=== PATIENT | female | born 1945 | race Caucasian/White ===

== ENCOUNTER 2018-07-04 18:12 | Inpatient (IN) | payer MEDICARE, MEDICAID ==
[~2018-07-04] VITALS: Ht 177.8 cm; Wt 48.1 kg
[2018-07-04] MEDS: SODIUM CHLORIDE FLUSH 10ML SYR IVF SCH (22:30)
[2018-07-04] MEDS ORDERED: PLEASE ENTER ALLERGIES MC SCH (22:30)
[2018-07-04] MEDS ORDERED: PLEASE ENTER HEIGHT AND WEIGHT MC SCH (22:30)
[2018-07-04] MEDS ORDERED: ACETAMINOPHEN 325 MG TABLET PO PRN (22:30)
[2018-07-04] MEDS ORDERED: POLYETHYLENE GLYCOL 17 GM PACKET PO PRN (22:30)
[2018-07-04] MEDS ORDERED: BISACODYL 10 MG SUPP PR PRN (22:30)
[2018-07-04 23:00] VITALS: BP 102/67
[2018-07-04 23:14] LABS: BASOPHILS # (AUTO) 0.03 x10^3/uL (0-0.1); BASOPHILS % (AUTO) 0 % (0-1); EOSINOPHILS # (AUTO) 0.32 x10^3/uL (0-0.4); EOSINOPHILS % (AUTO) 4 % (1-7); LYMPHOCYTES # (AUTO) 2.18 x10^3/uL (1-3.4); LYMPHOCYTES % (AUTO) 30 % (22-44); MD NO; MEAN CORPUSCULAR HGB CONC 32.5 g/dL (32.4-35.8); MEAN CORPUSCULAR VOLUME 92.6 fL (80-100); MEAN PLATELET VOLUME 8.2 fL (7.4-10.4); MONOCYTES % (AUTO) 11 % (2-9); NEUTROPHILS # (AUTO) 3.93 x10^3/uL (1.8-6.8); NEUTROPHILS % (AUTO) 54 % (42-75); PLATELET COUNT 332 x10^3/uL (130-400); RED BLOOD COUNT 3.11 x10^6/uL (3.82-5.3); RED CELL DISTRIBUTION WIDTH 16.2 % (9.6-15.2)
[2018-07-04 23:24] LABS: ALANINE AMINOTRANSFERASE 12 U/L (12-78); ALBUMIN 2.8 g/dL (3.4-5.0); ANION GAP 7 mmol/L (5-15); CALCIUM 8.4 mg/dL (8.5-10.1); CHLORIDE 107 mmol/L (98-107); CREATININE 0.64 mg/dL (0.55-1.02)
[2018-07-04 23:27] LABS: ALKALINE PHOSPHATASE 126 U/L (45-117); BILIRUBIN,TOTAL 0.3 mg/dL (0.2-1.0); TOTAL PROTEIN 6.6 g/dL (6.4-8.2)
[2018-07-05] MEDS ORDERED: MAG360OR26 PO (00:25)
[2018-07-05] MEDS ORDERED: GUAI120L37 PO (00:25)
[2018-07-05] MEDS ORDERED: LEVO25TA4 PO (00:25)
[2018-07-05] MEDS ORDERED: GABA-826 PO (00:25)
[2018-07-05] MEDS ORDERED: ACET650S21 PO (00:25)
[2018-07-05] MEDS ORDERED: GABA600T2 PO (00:25)
[2018-07-05] MEDS ORDERED: NAPR-868 PO (00:25)
[2018-07-05] MEDS ORDERED: ALBU5SOL6 NEB (00:25)
[2018-07-05] MEDS ORDERED: DOXY100T PO (00:25)
[2018-07-05] MEDS ORDERED: PANT40TA5 PO (00:25)
[2018-07-05] MEDS ORDERED: LORA0.5T PO (00:25)
[2018-07-05] MEDS ORDERED: MAGNESIUM HYDROXIDE PO (00:25)
[2018-07-05] MEDS ORDERED: METO25TA35 PO (00:25)
[2018-07-05] MEDS ORDERED: RISP0.5T3 PO (00:25)
[2018-07-05] MEDS ORDERED: LIDO700A20 TD (00:25)
[2018-07-05] MEDS ORDERED: OXYC-432 PO (00:25)
[2018-07-05] MEDS ORDERED: ALBUTEROL/IPRATROPIUM 2.5MG/0.5MG, 3 ML NPPB PRN (01:00)
[2018-07-05] MEDS ORDERED: ALUMINUM/MAG/SIMETHICONE 30 ML UDC PO PRN (01:30)
[2018-07-05] MEDS ORDERED: LORazepam 0.5MG TABLET PO PRN (01:30)
[2018-07-05] MEDS ORDERED: ALBUTEROL SULFATE 2.5 MG/3 ML NPPB PRN (01:30)
[2018-07-05 02:51] VITALS: BP 94/62
[2018-07-05] MEDS: HEPARIN 5,000 UNITS/ML, 1ML SQ SCH ×2 (03:19→09:36)
[2018-07-05] MEDS: METOPROLOL TARTRATE 25 MG TABLET PO SCH ×3 (06:00→17:09)
[2018-07-05 06:08] VITALS: BP 97/62
[2018-07-05] MEDS: LEVOTHYROXINE 25 MCG TABLET PO SCH (06:29)
[2018-07-05 06:56] VITALS: BP 104/63
[2018-07-05] MEDS: PANTOPROZOLE 40MG TABLET PO SCH (07:57)
[2018-07-05] MEDS: GABAPENTIN 100 MG CAPSULE PO SCH ×2 (08:00→17:09)
[2018-07-05] MEDS: SENNA/DOCUSATE TABLET PO SCH (09:00)
[2018-07-05] MEDS: SODIUM CHLORIDE FLUSH 10ML SYR IVF SCH ×2 (09:00→19:32)
[2018-07-05] MEDS: DOXYCYCLINE 100MG TABLET PO SCH ×2 (09:00→19:32)
[2018-07-05] MEDS: NAPROXEN 250 MG TABLET PO SCH ×2 (09:00→19:33)
[2018-07-05] MEDS: LIDODERM 5% PATCH TD SCH (09:36)
[2018-07-05] MEDS ORDERED: LIDOCAINE-MPF 1%, 5ML ONE ×2 (11:30)
[2018-07-05] MEDS ORDERED: FENTANYL PF 100 MCG/2ML ONE ×2 (11:39→11:40)
[2018-07-05] MEDS ORDERED: NALOXONE 1 MG/ML, 2ML ONE (11:40)
[2018-07-05] MEDS ORDERED: MIDAZOLAM 1 MG/ML, 5ML ONE (11:40)
[2018-07-05] MEDS ORDERED: FLUMAZENIL 0.1 MG/1 ML, 5ML ONE (11:40)
[2018-07-05 12:36] VITALS: BP 106/62
[2018-07-05] MEDS: OXYcodone/APAP 10/325MG TABLET PO PRN ×2 (14:00→20:22)
[2018-07-05] MEDS ORDERED: GADOBUTROL 7.5 MMOL/7.5 ML PFS ONE (15:55)
[2018-07-05 19:04] VITALS: BP 119/68
[2018-07-05] MEDS: GABAPENTIN 300 MG CAPSULE PO SCH (19:32)
[2018-07-05] MEDS: RISPERIDONE 0.5 MG TABLET PO SCH (19:32)
[2018-07-05] MEDS: GUAIFENESIN/COD200MG-20MG/10ML LIQUID PO PRN (20:19)
[2018-07-06 02:05] VITALS: BP 121/74
[2018-07-06] MEDS: HEPARIN 5,000 UNITS/ML, 1ML SQ SCH ×4 (03:00→22:06)
[2018-07-06 05:16] LABS: BASOPHILS # (AUTO) 0.06 x10^3/uL (0-0.1); BASOPHILS % (AUTO) 1 % (0-1); EOSINOPHILS # (AUTO) 0.33 x10^3/uL (0-0.4); EOSINOPHILS % (AUTO) 5 % (1-7); LYMPHOCYTES # (AUTO) 1.85 x10^3/uL (1-3.4); LYMPHOCYTES % (AUTO) 28 % (22-44); MD NO; MEAN CORPUSCULAR HEMOGLOBIN 30.1 pg (27.0-34.8); MEAN CORPUSCULAR HGB CONC 32.7 g/dL (32.4-35.8); MEAN CORPUSCULAR VOLUME 91.9 fL (80-100); MEAN PLATELET VOLUME 8.6 fL (7.4-10.4); MONOCYTES # (AUTO) 0.65 x10^3/uL (0.2-0.8); MONOCYTES % (AUTO) 10 % (2-9); NEUTROPHILS % (AUTO) 56 % (42-75); PLATELET COUNT 298 x10^3/uL (130-400); RED BLOOD COUNT 2.96 x10^6/uL (3.82-5.3); RED CELL DISTRIBUTION WIDTH 16.2 % (9.6-15.2)
[2018-07-06 05:26] LABS: ANION GAP 8 mmol/L (5-15); CALCIUM 8.4 mg/dL (8.5-10.1); CHLORIDE 110 mmol/L (98-107); CREATININE 0.45 mg/dL (0.55-1.02)
[2018-07-06] MEDS: LEVOTHYROXINE 25 MCG TABLET PO SCH (05:35)
[2018-07-06] MEDS: METOPROLOL TARTRATE 25 MG TABLET PO SCH ×2 (05:36→16:19)
[2018-07-06 07:03] VITALS: BP 108/66
[2018-07-06] MEDS: PANTOPROZOLE 40MG TABLET PO SCH (07:42)
[2018-07-06] MEDS: SENNA/DOCUSATE TABLET PO SCH (08:47)
[2018-07-06] MEDS: GABAPENTIN 100 MG CAPSULE PO SCH ×2 (08:47→16:19)
[2018-07-06] MEDS: OXYcodone/APAP 10/325MG TABLET PO PRN ×3 (08:47→20:55)
[2018-07-06] MEDS: DOXYCYCLINE 100MG TABLET PO SCH ×2 (08:48→20:55)
[2018-07-06] MEDS: NAPROXEN 250 MG TABLET PO SCH ×2 (08:48→20:56)
[2018-07-06] MEDS: LIDODERM 5% PATCH TD SCH (08:49)
[2018-07-06] MEDS: SODIUM CHLORIDE FLUSH 10ML SYR IVF SCH ×2 (08:50→20:56)
[2018-07-06] MEDS: GUAIFENESIN/COD200MG-20MG/10ML LIQUID PO PRN (12:11)
[2018-07-06 14:16] VITALS: BP 123/74
[2018-07-06 20:01] VITALS: BP 112/63
[2018-07-06] MEDS: GABAPENTIN 300 MG CAPSULE PO SCH (20:55)
[2018-07-06] MEDS: RISPERIDONE 0.5 MG TABLET PO SCH (20:55)
[2018-07-07] VITALS (14 sets, daily range): BP systolic 92–126; BP diastolic 57–77
[2018-07-07] MEDS: OXYcodone/APAP 10/325MG TABLET PO PRN ×3 (02:58→18:35)
[2018-07-07] MEDS: LEVOTHYROXINE 25 MCG TABLET PO SCH (05:56)
[2018-07-07] MEDS: HEPARIN 5,000 UNITS/ML, 1ML SQ SCH ×3 (05:56→18:56)
[2018-07-07] MEDS: METOPROLOL TARTRATE 25 MG TABLET PO SCH ×2 (05:59→17:24)
[2018-07-07] MEDS: PANTOPROZOLE 40MG TABLET PO SCH (07:38)
[2018-07-07] MEDS: GABAPENTIN 100 MG CAPSULE PO SCH ×2 (08:55→17:24)
[2018-07-07] MEDS: DOXYCYCLINE 100MG TABLET PO SCH ×2 (08:55→21:35)
[2018-07-07] MEDS: LIDODERM 5% PATCH TD SCH (08:55)
[2018-07-07] MEDS: NAPROXEN 250 MG TABLET PO SCH ×2 (08:56→21:00)
[2018-07-07] MEDS: SENNA/DOCUSATE TABLET PO SCH (08:56)
[2018-07-07] MEDS: SODIUM CHLORIDE FLUSH 10ML SYR IVF SCH ×2 (08:56→21:36)
[2018-07-07] MEDS: GUAIFENESIN/COD200MG-20MG/10ML LIQUID PO PRN (15:23)
[2018-07-07] MEDS: MAGNESIUM HYDROXIDE 8%, 30ML UDC PO PRN (17:29)
[2018-07-07] MEDS: ALBUTEROL/IPRATROPIUM 2.5MG/0.5MG, 3 ML NPPB SCH (19:08)
[2018-07-07] MEDS: RISPERIDONE 0.5 MG TABLET PO SCH (21:36)
[2018-07-07] MEDS: GABAPENTIN 300 MG CAPSULE PO SCH (21:36)
[2018-07-07] MEDS: MICONAZOLE 7 VAG. CRM 2%, 45GM VG SCH (22:01)
[2018-07-08 00:18] VITALS: BP 102/63
[2018-07-08] MEDS ORDERED: ALBUTEROL/IPRATROPIUM 2.5MG/0.5MG, 3 ML NPPB SCH (01:00)
[2018-07-08] MEDS: OXYcodone/APAP 10/325MG TABLET PO PRN ×2 (02:06→15:00)
[2018-07-08] MEDS: HEPARIN 5,000 UNITS/ML, 1ML SQ SCH ×3 (03:42→22:26)
[2018-07-08 05:00] LABS: BASOPHILS # (AUTO) 0.04 x10^3/uL (0-0.1); BASOPHILS % (AUTO) 1 % (0-1); EOSINOPHILS # (AUTO) 0.19 x10^3/uL (0-0.4); EOSINOPHILS % (AUTO) 3 % (1-7); LYMPHOCYTES # (AUTO) 1.65 x10^3/uL (1-3.4); LYMPHOCYTES % (AUTO) 26 % (22-44); MD NO; MEAN CORPUSCULAR HEMOGLOBIN 29.5 pg (27.0-34.8); MEAN CORPUSCULAR HGB CONC 32.3 g/dL (32.4-35.8); MEAN CORPUSCULAR VOLUME 91.2 fL (80-100); MEAN PLATELET VOLUME 8.8 fL (7.4-10.4); MONOCYTES # (AUTO) 0.59 x10^3/uL (0.2-0.8); MONOCYTES % (AUTO) 10 % (2-9); NEUTROPHILS # (AUTO) 3.79 x10^3/uL (1.8-6.8); NEUTROPHILS % (AUTO) 61 % (42-75); PLATELET COUNT 238 x10^3/uL (130-400); RED BLOOD COUNT 3.12 x10^6/uL (3.82-5.3); RED CELL DISTRIBUTION WIDTH 16.5 % (9.6-15.2)
[2018-07-08 05:04] LABS: INTERNATIONAL NORMALIZED RATIO 1.09 (0.93-1.1); PROTHROMBIN TIME 11.3 Seconds (9.6-11.5)
[2018-07-08 05:30] VITALS: BP 92/52
[2018-07-08 05:31] VITALS: BP 85/49
[2018-07-08] MEDS: METOPROLOL TARTRATE 25 MG TABLET PO SCH ×2 (05:32→16:58)
[2018-07-08] MEDS: LEVOTHYROXINE 25 MCG TABLET PO SCH (05:38)
[2018-07-08 05:42] LABS: CHLORIDE 106 mmol/L (98-107)
[2018-07-08 05:48] LABS: ANION GAP 11 mmol/L (5-15); CALCIUM 8.6 mg/dL (8.5-10.1); CREATININE 0.46 mg/dL (0.55-1.02)
[2018-07-08] MEDS: ALBUTEROL/IPRATROPIUM 2.5MG/0.5MG, 3 ML NPPB SCH ×4 (07:00→20:40)
[2018-07-08 07:20] VITALS: BP 94/56
[2018-07-08] MEDS: PANTOPROZOLE 40MG TABLET PO SCH (09:00)
[2018-07-08] MEDS: GABAPENTIN 100 MG CAPSULE PO SCH ×2 (09:00→16:58)
[2018-07-08] MEDS: NAPROXEN 250 MG TABLET PO SCH ×2 (09:00→21:22)
[2018-07-08] MEDS: SENNA/DOCUSATE TABLET PO SCH (09:00)
[2018-07-08] MEDS: DOXYCYCLINE 100MG TABLET PO SCH ×2 (09:01→21:22)
[2018-07-08] MEDS: GUAIFENESIN ER 600 MG TABLET PO SCH ×2 (09:01→21:21)
[2018-07-08] MEDS: SODIUM CHLORIDE FLUSH 10ML SYR IVF SCH ×2 (09:02→21:21)
[2018-07-08] MEDS: LIDODERM 5% PATCH TD SCH (09:04)
[2018-07-08 12:44] VITALS: BP 87/46
[2018-07-08 20:27] VITALS: BP 98/60
[2018-07-08] MEDS: GABAPENTIN 300 MG CAPSULE PO SCH (21:22)
[2018-07-08] MEDS: RISPERIDONE 0.5 MG TABLET PO SCH (21:22)
[2018-07-08] MEDS: MICONAZOLE 7 VAG. CRM 2%, 45GM VG SCH (21:23)
[2018-07-09 01:32] VITALS: BP 92/54
[2018-07-09] MEDS: HEPARIN 5,000 UNITS/ML, 1ML SQ SCH ×3 (03:36→22:43)
[2018-07-09] MEDS: METOPROLOL TARTRATE 25 MG TABLET PO SCH ×2 (06:00→17:42)
[2018-07-09] MEDS: LEVOTHYROXINE 25 MCG TABLET PO SCH (06:28)
[2018-07-09 06:55] VITALS: BP 98/59
[2018-07-09] MEDS: LIDODERM 5% PATCH TD SCH (08:26)
[2018-07-09] MEDS: PANTOPROZOLE 40MG TABLET PO SCH (08:27)
[2018-07-09] MEDS: GABAPENTIN 100 MG CAPSULE PO SCH ×2 (08:27→17:42)
[2018-07-09] MEDS: DOXYCYCLINE 100MG TABLET PO SCH ×2 (08:27→19:45)
[2018-07-09] MEDS: NAPROXEN 250 MG TABLET PO SCH ×2 (08:27→19:45)
[2018-07-09] MEDS: SENNA/DOCUSATE TABLET PO SCH (08:27)
[2018-07-09] MEDS: GUAIFENESIN ER 600 MG TABLET PO SCH ×2 (08:27→19:45)
[2018-07-09] MEDS: SODIUM CHLORIDE FLUSH 10ML SYR IVF SCH ×2 (08:28→19:42)
[2018-07-09] MEDS: ALBUTEROL/IPRATROPIUM 2.5MG/0.5MG, 3 ML NPPB SCH ×4 (08:36→20:25)
[2018-07-09 12:40] VITALS: BP 94/60
[2018-07-09] MEDS: OXYcodone/APAP 10/325MG TABLET PO PRN ×2 (15:21→22:42)
[2018-07-09 19:36] VITALS: BP 108/73
[2018-07-09] MEDS: RISPERIDONE 0.5 MG TABLET PO SCH (19:45)
[2018-07-09] MEDS: GABAPENTIN 300 MG CAPSULE PO SCH (22:42)
[2018-07-09] MEDS: MICONAZOLE 7 VAG. CRM 2%, 45GM VG SCH (22:43)
[2018-07-10 01:15] VITALS: BP 101/68
[2018-07-10] MEDS: LEVOTHYROXINE 25 MCG TABLET PO SCH (05:23)
[2018-07-10] MEDS: METOPROLOL TARTRATE 25 MG TABLET PO SCH ×2 (05:23→17:25)
[2018-07-10] MEDS: ALBUTEROL/IPRATROPIUM 2.5MG/0.5MG, 3 ML NPPB SCH ×4 (07:00→20:02)
[2018-07-10 07:19] VITALS: BP 101/66
[2018-07-10] MEDS: ONDANSETRON ODT 4 MG PO PRN ×3 (08:12→23:21)
[2018-07-10] MEDS: OXYcodone/APAP 10/325MG TABLET PO PRN ×3 (08:12→23:18)
[2018-07-10] MEDS: NAPROXEN 250 MG TABLET PO SCH ×2 (08:12→20:58)
[2018-07-10] MEDS: PANTOPROZOLE 40MG TABLET PO SCH (08:13)
[2018-07-10] MEDS: SENNA/DOCUSATE TABLET PO SCH (08:13)
[2018-07-10] MEDS: GABAPENTIN 100 MG CAPSULE PO SCH ×2 (08:13→17:25)
[2018-07-10] MEDS: DOXYCYCLINE 100MG TABLET PO SCH ×2 (08:13→20:59)
[2018-07-10] MEDS: HEPARIN 5,000 UNITS/ML, 1ML SQ SCH ×2 (08:13→13:00)
[2018-07-10] MEDS: SODIUM CHLORIDE FLUSH 10ML SYR IVF SCH ×2 (08:13→20:59)
[2018-07-10] MEDS: GUAIFENESIN ER 600 MG TABLET PO SCH ×2 (08:13→20:58)
[2018-07-10] MEDS: LIDODERM 5% PATCH TD SCH (08:19)
[2018-07-10 14:19] VITALS: BP 94/57
[2018-07-10 19:05] VITALS: BP 92/56
[2018-07-10] MEDS: RISPERIDONE 0.5 MG TABLET PO SCH (20:58)
[2018-07-10] MEDS: GABAPENTIN 300 MG CAPSULE PO SCH (20:58)
[2018-07-10] MEDS: MICONAZOLE 7 VAG. CRM 2%, 45GM VG SCH (20:59)
[2018-07-11 01:18] VITALS: BP 97/56
[2018-07-11] MEDS: LEVOTHYROXINE 25 MCG TABLET PO SCH (05:51)
[2018-07-11] MEDS: METOPROLOL TARTRATE 25 MG TABLET PO SCH ×2 (05:51→18:00)
[2018-07-11] MEDS: ALBUTEROL/IPRATROPIUM 2.5MG/0.5MG, 3 ML NPPB SCH ×2 (06:30→10:08)
[2018-07-11 08:13] VITALS: BP 96/57
[2018-07-11] MEDS: SODIUM CHLORIDE FLUSH 10ML SYR IVF SCH ×2 (09:07→20:20)
[2018-07-11] MEDS: GABAPENTIN 100 MG CAPSULE PO SCH ×2 (09:07→17:00)
[2018-07-11] MEDS: PANTOPROZOLE 40MG TABLET PO SCH (09:07)
[2018-07-11] MEDS: GUAIFENESIN ER 600 MG TABLET PO SCH ×2 (09:07→20:18)
[2018-07-11] MEDS: NAPROXEN 250 MG TABLET PO SCH ×2 (09:07→20:19)
[2018-07-11] MEDS: DOXYCYCLINE 100MG TABLET PO SCH ×2 (09:08→20:19)
[2018-07-11] MEDS: SENNA/DOCUSATE TABLET PO SCH (09:08)
[2018-07-11] MEDS: LIDODERM 5% PATCH TD SCH (09:08)
[2018-07-11] MEDS ORDERED: SUCCINYLCHOLINE 20 MG/ML, 10ML ONE (10:29)
[2018-07-11] MEDS ORDERED: ONDANSETRON 2MG/ML, 2ML ONE (10:29)
[2018-07-11] MEDS ORDERED: DEXAMETHASONE 4 MG/ML, 1ML ONE (10:29)
[2018-07-11] MEDS ORDERED: PHENYLEPHRINE 10 MG/ML ONE (10:29)
[2018-07-11] MEDS ORDERED: CEFAZOLIN 1,000 MG ONE (10:29)
[2018-07-11] MEDS ORDERED: PROPOFOL 10 MG/ML, 20ML ONE (10:29)
[2018-07-11] MEDS ORDERED: METOCLOPRAMIDE 5 MG/ML, 2ML ONE (10:29)
[2018-07-11] MEDS ORDERED: ALBUTEROL/IPRATROPIUM 2.5MG/0.5MG, 3 ML NPPB PRN (10:30)
[2018-07-11 14:12] VITALS: BP 100/56
[2018-07-11] MEDS ORDERED: EPINEPHRINE 1 MG/ML, 1ML ONE (16:13)
[2018-07-11] MEDS ORDERED: BUPIVACAINE/PF 0.5% ONE (16:13)
[2018-07-11] MEDS ORDERED: MIDAZOLAM 1 MG/ML, 2ML ONE (16:16)
[2018-07-11] MEDS ORDERED: FENTANYL PF 100 MCG/2ML ONE ×3 (16:16→18:48)
[2018-07-11] MEDS ORDERED: OMNIPAQUE 180 MG/ML, 20ML VIAL IT ONE (16:45)
[2018-07-11] MEDS ORDERED: FENTANYL PF 100 MCG/2ML IV PRN (18:30)
[2018-07-11] MEDS ORDERED: ONDANSETRON 2MG/ML, 2ML IV PRN (18:30)
[2018-07-11] MEDS ORDERED: HYDROmorphone 1 MG/ML, 1ML IV PRN (18:30)
[2018-07-11] MEDS ORDERED: HALOPERIDOL 5 MG/ML IV PRN (18:30)
[2018-07-11] MEDS ORDERED: LABETALOL 5MG/ML, 20ML IV PRN (18:30)
[2018-07-11] MEDS ORDERED: MEPERIDINE/PF 25MG/0.5ML IVPush PRN (18:30)
[2018-07-11] MEDS ORDERED: OXYcodone 5 MG/5 ML ORAL.SOL UDC PO PRN (18:30)
[2018-07-11] MEDS ORDERED: hydrALAzine 20 MG/ML, 1ML IV PRN (18:30)
[2018-07-11] MEDS ORDERED: OXYcodone 5 MG/5 ML ORAL.SOL UDC ONE ×2 (18:48→18:49)
[2018-07-11] MEDS ORDERED: HYDROmorphone 2 MG/ML, 1ML ONE (18:49)
[2018-07-11] MEDS: OXYcodone/APAP 10/325MG TABLET PO PRN (20:18)
[2018-07-11] MEDS: RISPERIDONE 0.5 MG TABLET PO SCH (20:18)
[2018-07-11] MEDS: GABAPENTIN 300 MG CAPSULE PO SCH (20:19)
[2018-07-11] MEDS: MICONAZOLE 7 VAG. CRM 2%, 45GM VG SCH (20:22)
[2018-07-11 20:28] VITALS: BP 122/73
[2018-07-11] MEDS ORDERED: MORPHINE SULFATE 4 MG/ML, 1ML IVPush PRN (20:30)
[2018-07-12 02:05] VITALS: BP 103/58
[2018-07-12 04:44] LABS: BASOPHILS # (AUTO) 0.03 x10^3/uL (0-0.1); BASOPHILS % (AUTO) 0 % (0-1); EOSINOPHILS # (AUTO) 0.01 x10^3/uL (0-0.4); EOSINOPHILS % (AUTO) 0 % (1-7); LYMPHOCYTES # (AUTO) 1.06 x10^3/uL (1-3.4); LYMPHOCYTES % (AUTO) 10 % (22-44); MD NO; MEAN CORPUSCULAR HEMOGLOBIN 29.5 pg (27.0-34.8); MEAN CORPUSCULAR HGB CONC 32.1 g/dL (32.4-35.8); MONOCYTES # (AUTO) 0.24 x10^3/uL (0.2-0.8); MONOCYTES % (AUTO) 2 % (2-9); NEUTROPHILS # (AUTO) 9.87 x10^3/uL (1.8-6.8); NEUTROPHILS % (AUTO) 88 % (42-75); PLATELET COUNT 244 x10^3/uL (130-400); RED BLOOD COUNT 3.05 x10^6/uL (3.82-5.3); RED CELL DISTRIBUTION WIDTH 16.5 % (9.6-15.2)
[2018-07-12 04:55] LABS: ANION GAP 8 mmol/L (5-15); CALCIUM 8.3 mg/dL (8.5-10.1); CHLORIDE 105 mmol/L (98-107)
[2018-07-12] MEDS: METOPROLOL TARTRATE 25 MG TABLET PO SCH ×2 (04:55→18:25)
[2018-07-12 04:56] LABS: CREATININE 0.57 mg/dL (0.55-1.02)
[2018-07-12] MEDS: LEVOTHYROXINE 25 MCG TABLET PO SCH (05:40)
[2018-07-12] MEDS: OXYcodone/APAP 10/325MG TABLET PO PRN ×2 (05:40→19:58)
[2018-07-12] MEDS: MAGNESIUM HYDROXIDE 8%, 30ML UDC PO PRN (05:40)
[2018-07-12 07:33] VITALS: BP 100/64
[2018-07-12] MEDS: PANTOPROZOLE 40MG TABLET PO SCH (10:24)
[2018-07-12] MEDS: DOXYCYCLINE 100MG TABLET PO SCH ×2 (10:24→19:57)
[2018-07-12] MEDS: SENNA/DOCUSATE TABLET PO SCH (10:24)
[2018-07-12] MEDS: GUAIFENESIN ER 600 MG TABLET PO SCH ×2 (10:24→19:57)
[2018-07-12] MEDS: GABAPENTIN 100 MG CAPSULE PO SCH ×2 (10:25→18:25)
[2018-07-12] MEDS: NAPROXEN 250 MG TABLET PO SCH ×2 (10:25→19:57)
[2018-07-12] MEDS: SODIUM CHLORIDE FLUSH 10ML SYR IVF SCH ×2 (10:27→20:00)
[2018-07-12 14:30] VITALS: BP 103/64
[2018-07-12] MEDS: MICONAZOLE 7 VAG. CRM 2%, 45GM VG SCH (19:57)
[2018-07-12] MEDS: RISPERIDONE 0.5 MG TABLET PO SCH (19:57)
[2018-07-12] MEDS: GABAPENTIN 300 MG CAPSULE PO SCH (19:57)
[2018-07-12 20:51] VITALS: BP 100/64
[2018-07-12] MEDS ORDERED: MAGNESIUM HYDROXIDE 8%, 30ML UDC PO PRN (21:00)
[2018-07-13 02:54] VITALS: BP 96/53
[2018-07-13] MEDS: METOPROLOL TARTRATE 25 MG TABLET PO SCH ×2 (05:02→17:03)
[2018-07-13] MEDS: LEVOTHYROXINE 25 MCG TABLET PO SCH ×2 (07:30→07:42)
[2018-07-13] MEDS: PANTOPROZOLE 40MG TABLET PO SCH (07:42)
[2018-07-13] MEDS: OXYcodone/APAP 10/325MG TABLET PO PRN ×2 (07:42→17:02)
[2018-07-13 08:30] VITALS: BP 84/49
[2018-07-13] MEDS ORDERED: BISACODYL 10 MG SUPP PR PRN (09:00)
[2018-07-13] MEDS ORDERED: MAGNESIUM CITRATE 300ML ORAL SOL PO ONE (09:30)
[2018-07-13] MEDS: POLYETHYLENE GLYCOL 17 GM PACKET PO SCH (09:30)
[2018-07-13] MEDS: GABAPENTIN 100 MG CAPSULE PO SCH ×2 (09:45→16:54)
[2018-07-13] MEDS: GUAIFENESIN ER 600 MG TABLET PO SCH ×2 (09:45→21:33)
[2018-07-13] MEDS: NAPROXEN 250 MG TABLET PO SCH ×2 (09:46→21:33)
[2018-07-13] MEDS: SENNA/DOCUSATE TABLET PO SCH (09:46)
[2018-07-13] MEDS: SODIUM CHLORIDE FLUSH 10ML SYR IVF SCH ×2 (09:50→21:00)
[2018-07-13 14:30] VITALS: BP 104/66
[2018-07-13 19:00] VITALS: BP 102/64
[2018-07-13] MEDS: ALBUTEROL/IPRATROPIUM 2.5MG/0.5MG, 3 ML NPPB SCH (21:00)
[2018-07-13] MEDS: GABAPENTIN 300 MG CAPSULE PO SCH (21:33)
[2018-07-13] MEDS: MICONAZOLE 7 VAG. CRM 2%, 45GM VG SCH (21:34)
[2018-07-13] MEDS: RISPERIDONE 0.5 MG TABLET PO SCH (21:34)
[2018-07-14 03:45] VITALS: BP 98/61
[2018-07-14] MEDS: METOPROLOL TARTRATE 25 MG TABLET PO SCH ×3 (05:33→17:35)
[2018-07-14] MEDS: LEVOTHYROXINE 25 MCG TABLET PO SCH (05:39)
[2018-07-14] MEDS: OXYcodone/APAP 10/325MG TABLET PO PRN ×2 (05:42→12:18)
[2018-07-14 07:23] VITALS: BP 96/60
[2018-07-14] MEDS: PANTOPROZOLE 40MG TABLET PO SCH (08:18)
[2018-07-14] MEDS: NAPROXEN 250 MG TABLET PO SCH ×2 (08:18→20:38)
[2018-07-14] MEDS: GUAIFENESIN ER 600 MG TABLET PO SCH ×2 (08:18→20:38)
[2018-07-14] MEDS: GABAPENTIN 100 MG CAPSULE PO SCH ×2 (08:18→17:35)
[2018-07-14] MEDS: SODIUM CHLORIDE FLUSH 10ML SYR IVF SCH ×2 (09:00→20:38)
[2018-07-14] MEDS: SENNA/DOCUSATE TABLET PO SCH (09:00)
[2018-07-14] MEDS: ALBUTEROL/IPRATROPIUM 2.5MG/0.5MG, 3 ML NPPB SCH ×2 (09:00→19:30)
[2018-07-14] MEDS: POLYETHYLENE GLYCOL 17 GM PACKET PO SCH (09:00)
[2018-07-14 13:06] VITALS: BP 85/50
[2018-07-14 17:34] VITALS: BP 110/67
[2018-07-14] MEDS: GABAPENTIN 300 MG CAPSULE PO SCH (20:38)
[2018-07-14] MEDS: RISPERIDONE 0.5 MG TABLET PO SCH (20:38)
[2018-07-14 20:43] VITALS: BP 104/65
[2018-07-15] VITALS (7 sets, daily range): BP systolic 91–153; BP diastolic 53–81
[2018-07-15] MEDS: OXYcodone/APAP 10/325MG TABLET PO PRN ×3 (00:29→12:34)
[2018-07-15 04:55] LABS: BASOPHILS # (AUTO) 0.06 x10^3/uL (0-0.1); BASOPHILS % (AUTO) 1 % (0-1); EOSINOPHILS # (AUTO) 0.47 x10^3/uL (0-0.4); EOSINOPHILS % (AUTO) 7 % (1-7); LYMPHOCYTES # (AUTO) 1.75 x10^3/uL (1-3.4); LYMPHOCYTES % (AUTO) 25 % (22-44); MD NO; MEAN CORPUSCULAR HEMOGLOBIN 29.3 pg (27.0-34.8); MEAN CORPUSCULAR HGB CONC 31.8 g/dL (32.4-35.8); MEAN CORPUSCULAR VOLUME 92.1 fL (80-100); MEAN PLATELET VOLUME 8.8 fL (7.4-10.4); MONOCYTES # (AUTO) 0.71 x10^3/uL (0.2-0.8); MONOCYTES % (AUTO) 10 % (2-9); NEUTROPHILS # (AUTO) 4.11 x10^3/uL (1.8-6.8); NEUTROPHILS % (AUTO) 58 % (42-75); PLATELET COUNT 241 x10^3/uL (130-400); RED CELL DISTRIBUTION WIDTH 16.4 % (9.6-15.2)
[2018-07-15 05:03] LABS: ALBUMIN 2.3 g/dL (3.4-5.0); ANION GAP 6 mmol/L (5-15); CALCIUM 8.3 mg/dL (8.5-10.1); CHLORIDE 104 mmol/L (98-107)
[2018-07-15 05:09] LABS: CREATININE 0.39 mg/dL (0.55-1.02); PREALBUMIN 7.4 mg/dL (20.0-40.0)
[2018-07-15] MEDS: METOPROLOL TARTRATE 25 MG TABLET PO SCH (06:00)
[2018-07-15] MEDS: LEVOTHYROXINE 25 MCG TABLET PO SCH (06:35)
[2018-07-15] MEDS: PANTOPROZOLE 40MG TABLET PO SCH (08:24)
[2018-07-15] MEDS: GUAIFENESIN ER 600 MG TABLET PO SCH ×2 (08:25→21:21)
[2018-07-15] MEDS: GABAPENTIN 100 MG CAPSULE PO SCH ×2 (08:25→17:24)
[2018-07-15] MEDS: NAPROXEN 250 MG TABLET PO SCH ×2 (08:25→21:21)
[2018-07-15] MEDS: SODIUM CHLORIDE FLUSH 10ML SYR IVF SCH ×2 (08:27→21:22)
[2018-07-15] MEDS: ALBUTEROL/IPRATROPIUM 2.5MG/0.5MG, 3 ML NPPB SCH ×2 (08:55→19:40)
[2018-07-15] MEDS: SENNA/DOCUSATE TABLET PO SCH (09:00)
[2018-07-15] MEDS: POLYETHYLENE GLYCOL 17 GM PACKET PO SCH (09:00)
[2018-07-15] MEDS: ONDANSETRON ODT 4 MG PO PRN ×2 (15:05→21:21)
[2018-07-15] MEDS: GABAPENTIN 300 MG CAPSULE PO SCH (21:21)
[2018-07-15] MEDS: RISPERIDONE 0.5 MG TABLET PO SCH (21:21)
[2018-07-16 00:26] VITALS: BP 91/53
[2018-07-16] MEDS: OXYcodone/APAP 10/325MG TABLET PO PRN ×2 (05:47→14:47)
[2018-07-16] MEDS: LEVOTHYROXINE 25 MCG TABLET PO SCH (05:47)
[2018-07-16 07:17] VITALS: BP 99/66
[2018-07-16] MEDS: ALBUTEROL/IPRATROPIUM 2.5MG/0.5MG, 3 ML NPPB SCH (07:51)
[2018-07-16] MEDS: GABAPENTIN 100 MG CAPSULE PO SCH ×2 (08:21→16:45)
[2018-07-16] MEDS: GUAIFENESIN ER 600 MG TABLET PO SCH (08:21)
[2018-07-16] MEDS: NAPROXEN 250 MG TABLET PO SCH (08:22)
[2018-07-16] MEDS: POLYETHYLENE GLYCOL 17 GM PACKET PO SCH (08:22)
[2018-07-16] MEDS: PANTOPROZOLE 40MG TABLET PO SCH (08:22)
[2018-07-16] MEDS: SENNA/DOCUSATE TABLET PO SCH (08:22)
[2018-07-16] MEDS: SODIUM CHLORIDE FLUSH 10ML SYR IVF SCH (09:00)
[2018-07-16] MEDS ORDERED: MAGN400O7 PO (09:08)
[2018-07-16] MEDS ORDERED: SENN1TAB8 PO (09:08)
[2018-07-16] MEDS ORDERED: GUAI600T31 PO (09:08)
[2018-07-16 13:19] VITALS: BP 101/67
[2018-07-16] MEDS ORDERED: OXYcodone 5 MG/5 ML ORAL.SOL UDC PO ONE (16:32)
[2018-07-16] MEDS ORDERED: FENTANYL PF 100 MCG/2ML IVPush ONE (16:32)
[2018-07-16] MEDS ORDERED: GABAPENTIN 100 MG CAPSULE ONE (16:43)
== END 2018-07-16 16:33 | DRG 477 ==
LOC: 3NW 21:23 → UNDODISIN 07-16 16:35
PROVIDERS: ADMIT Family Medicine; ATTEND Family Medicine
PROC: 0QB30ZX Excision of Left Pelvic Bone, Open Approach, Diagnostic (ICD-10-PCS; principal; 2018-07-05)
PROC: 0PS43ZZ Reposition Thoracic Vertebra, Percutaneous Approach (ICD-10-PCS; 2018-07-11)
PROC: 0PU43JZ Supplement Thoracic Vertebra with Synthetic Substitute, Percutaneous Approach (ICD-10-PCS; 2018-07-11)
PROC: 0QS03ZZ Reposition Lumbar Vertebra, Percutaneous Approach (ICD-10-PCS; 2018-07-11)
PROC: 0QU03JZ Supplement Lumbar Vertebra with Synthetic Substitute, Percutaneous Approach (ICD-10-PCS; 2018-07-11)
PROC: 0PB43ZX Excision of Thoracic Vertebra, Percutaneous Approach, Diagnostic (ICD-10-PCS; 2018-07-11)
PROC: 0QB03ZX Excision of Lumbar Vertebra, Percutaneous Approach, Diagnostic (ICD-10-PCS; 2018-07-11)
PROC: 0P543ZZ Destruction of Thoracic Vertebra, Percutaneous Approach (ICD-10-PCS; 2018-07-11)
PROC: 4A11X4G Monitoring of Peripheral Nervous Electrical Activity, Intraoperative, External Approach (ICD-10-PCS; 2018-07-11)
PROC: 07DR3ZX Extraction of Iliac Bone Marrow, Percutaneous Approach, Diagnostic (ICD-10-PCS; 2018-07-11)
PROC: 0R5 Upper Joints, Destruction (ICD-10-PCS; 2018-07-11)
DX: M84.550A Pathological fracture in neoplastic disease, pelvis, initial encounter for fracture (principal); E43 Unspecified severe protein-calorie malnutrition; C79.51 Secondary malignant neoplasm of bone; C79.52 Secondary malignant neoplasm of bone marrow; F23 Brief psychotic disorder; J84.9 Interstitial pulmonary disease, unspecified; J98.11 Atelectasis; Z68.1 Body mass index [BMI] 19.9 or less, adult; Z87.891 Personal history of nicotine dependence; Z85.3 Personal history of malignant neoplasm of breast; J44.9 Chronic obstructive pulmonary disease, unspecified; E03.9 Hypothyroidism, unspecified; M84.58XA Pathological fracture in neoplastic disease, other specified site, initial encounter for fracture; I10 Essential (primary) hypertension; E87.5 Hyperkalemia; Z92.3 Personal history of irradiation; G89.29 Other chronic pain; R53.81 Other malaise; S32.9XXA Fracture of unspecified parts of lumbosacral spine and pelvis, initial encounter for closed fracture; C50.912 Malignant neoplasm of unspecified site of left female breast; D64.9 Anemia, unspecified; E05.90 Thyrotoxicosis, unspecified without thyrotoxic crisis or storm; E11.36 Type 2 diabetes mellitus with diabetic cataract; Z98.49 Cataract extraction status, unspecified eye; E11.40 Type 2 diabetes mellitus with diabetic neuropathy, unspecified; E78.5 Hyperlipidemia, unspecified; I11.9 Hypertensive heart disease without heart failure; K21.9 Gastro-esophageal reflux disease without esophagitis; K44.9 Diaphragmatic hernia without obstruction or gangrene; K59.00 Constipation, unspecified; K76.89 Other specified diseases of liver; N28.1 Cyst of kidney, acquired; Z17.0 Estrogen receptor positive status [ER+]; Z66 Do not resuscitate; Z82.49 Family history of ischemic heart disease and other diseases of the circulatory system; Z92.21 Personal history of antineoplastic chemotherapy
CPT/HCPCS: 20225; 36415; 70553; 71045; 71250; 72080; 74176; 77012; 80048; 80053; 82040; 82962; 83735; 84100; 84134; 85025; 85060; 85097; 85610; 88237; 88264; 88280; 88305; 88307; 88311; 88313; 88341; 88342; 88360; 88361; 93005; 94640; 99156; 99157; A9585; C1713; G0378; J0171; J0690; J1100; J1644; J2250; J2405; J2704; J3010; J3490; J7620; Q0162; Q9965; C1886; G0461; J0330; J2310; J2370; J2765